=== PATIENT | male | born 1940 | race Caucasian/White ===

== ENCOUNTER 2024-12-06 13:30 | Emergency (ER) | payer MEDICARE ==
[~2024-12-06] VITALS: Ht 172.7 cm; Wt 72.6 kg
[2024-12-06 14:15] VITALS: PULSE 94; RESP 18; TEMP 97.7
[2024-12-06 14:23] LABS: INFLUENZA A AG NEGATIVE (NEGATIVE)
[2024-12-06 14:24] LABS: CORONAVIRUS COVID-19 AG NEGATIVE (NEGATIVE); INFLUENZA B AG NEGATIVE (NEGATIVE)
[2024-12-06] MEDS ORDERED: DOXYCYCLINE HY100 MG PO (15:04)
[2024-12-06] MEDS ORDERED: VENTOLIN HFA18 GM INH (15:45)
[2024-12-06] MEDS: DEXAMETHASONE 4 MG TAB PO STA (15:53)
[2024-12-06 15:54] VITALS: BP 137/80; PULSE 78; RESP 17; TEMP 98.3; O2SAT 98
== END 2024-12-06 15:57 | disposition home or self-care (01) ==
LOC: ER 13:56
DX: R05.9 Cough, unspecified (principal); I10 Essential (primary) hypertension; E78.5 Hyperlipidemia, unspecified; K21.9 Gastro-esophageal reflux disease without esophagitis; Z11.52 Encounter for screening for COVID-19; F17.210 Nicotine dependence, cigarettes, uncomplicated
CPT/HCPCS: 71046; 87428; 99283; J8540